=== PATIENT | male | born 1950 | race Caucasian/White ===

== ENCOUNTER 2018-01-05 06:03 | Emergency (ER) | payer MEDICARE ==
[2018-01-05] MEDS ORDERED: SODIUM CHLORIDE 0.9% 500 ML IV STA (06:20)
[2018-01-05] MEDS ORDERED: MAG HYDROX/AL HYDROX/SIMETH 30 ML, HYOSCYAMINE ELIXIR 10 ML, CIMETIDINE HCL 300 MG, LID... PO STA ×4 (06:21)
[2018-01-05] MEDS ORDERED: PANTOPRAZOLE 40 MG/10 ML VIAL IVP STA (06:22)
--- NOTE | 2018-01-05 06:24 | ED ---
General Adult HPI - General Source: patient, RN notes reviewed Mode of arrival: ambulatory Limitations: no limitations <Lobito Ochoa - Last Filed: 01/05/18 07:00> <Lobito Hanley - Last Filed: 01/05/18 09:15> - General Chief complaint: Abdominal Pain Stated complaint: Indigestion Time Seen by Provider: 01/05/18 06:03 - History of Present Illness Initial comments: This is a 67-year-old male who presents emergency Department stating he has a history of heartburn last night as interpreted started about 10:00 he took Aleisha- Arabi and it relieved it for a short period time but then he came back he took Aleisha-Arabi again early in the morning and then again it came back. Patient states every time he laid down flat it would come back worse and sitting up did improve. Patient denies any chest pain difficulty breathing or shortness of breath per patient denies any diaphoresis. Patient denies any nausea or vomiting. Patient denies any diarrhea. Patient denies any radiation of the pain. Patient states it is painful in his upper abdomen and to the right upper quadrant. Patient denies any leg pain or swelling. Patient denies any lightheadedness or dizziness. Patient denies any drinking or smoking (Lobito Ochoa) - Related Data Home Medications Medication Instructions Recorded Confirmed Hydrochlorothiazide 12.5 mg PO QAM 09/02/15 09/06/15 [Hydrochlorothiazide] Lisinopril [Lisinopril] 40 mg PO QAM 09/02/15 09/06/15 Tamsulosin HCl [Tamsulosin HCl] 0.4 mg PO HS 09/02/15 09/06/15 Allergies Allergy/AdvReac Type Severity Reaction Status Date / Time No Known Allergies Allergy Verified 01/05/18 06:12 Review of Systems ROS Other: All systems not noted in ROS Statement are negative. <Lobito Ochoa - Last Filed: 01/05/18 07:00> ROS Other: All systems not noted in ROS Statement are negative. <Lobito Hanley - Last Filed: 01/05/18 09:15> ROS Statement: Those systems with pertinent positive or pertinent negative responses have been documented in the HPI. Past Medical History Past Medical History: Hyperlipidemia, Hypertension History of Any Multi-Drug Resistant Organisms: None Reported Past Surgical History: No Surgical Hx Reported Past Psychological History: No Psychological Hx Reported Smoking Status: Former smoker <Lobito Ochoa - Last Filed: 01/05/18 07:00> General Exam Limitations: no limitations <Lobito Ochoa - Last Filed: 01/05/18 07:00> <HolleyvyLobito Kraus - Last Filed: 01/05/18 09:15> - General Exam Comments Initial Comments: GENERAL: Patient is well-developed and well-nourished. Patient is nontoxic and well- hydrated and is in mild distress. ENT: Neck is soft and supple. No significant lymphadenopathy is noted. Oropharynx is clear. Moist mucous membranes. Neck has full range of motion without eliciting any pain. EYES: The sclera were anicteric and conjunctiva were pink and moist. Extraocular movements were intact and pupils were equal round and reactive to light. Eyelids were unremarkable. PULMONARY: Unlabored respirations. Good breath sounds bilaterally. No audible rales rhonchi or wheezing was noted. CARDIOVASCULAR: There is a regular rate and rhythm without any murmurs gallops or rubs. ABDOMEN: Right upper quadrant and epigastric tenderness No palpable organomegaly was noted. There is no palpable pulsatile mass. SKIN: Skin is clear with no lesions or rashes and otherwise unremarkable. NEUROLOGIC: Patient is alert and oriented x3. Cranial nerves II through XII are grossly intact. Motor and sensory are also intact. Normal speech, volume and content. Symmetrical smile. MUSCULOSKELETAL: Normal extremities with adequate strength and full range of motion. No lower extremity swelling or edema. No calf tenderness. LYMPHATICS: No significant lymphadenopathy is noted PSYCHIATRIC: Normal psychiatric evaluation. Normal interpersonal interactions appears functionally intact in deals appropriately with others. No signs of depression. No signs of anxiety. (Lobito Ochoa) Vital Signs 01/05/18 01/05/18 01/05/18 06:07 06:47 08:00 Temperature 97.5 F L 98 F Pulse Rate 64 100 55 L Respiratory 16 18 16 Rate Blood Pressure 199/112 181/100 170/85 O2 Sat by Pulse 99 100 98 Oximetry Medical Decision Making <Lobito Ochoa - Last Filed: 01/05/18 07:00> - Lab Data Result diagrams: 01/05/18 06:50 01/05/18 06:50 - Radiology Data Radiology results: report reviewed (Ultrasound gallbladder negative, CT and 0 chest abdomen pelvis negative for acute disease), image reviewed <Lobito Hanley - Last Filed: 01/05/18 09:15> - Medical Decision Making EKG shows sinus bradycardia at 55 bpm [place] interval is 170 QRS is 110 QT interval is 440 QTC is 420. Patient's EKG shows no ST segment elevation or depression or T wave abnormalities are noted. Dr. Hanley will be taking over the care of this patient at 7 AM (Ochoa, Lobito) 67 male with ER with nonspecific abdominal pain, mild epigastric tenderness. Patient is no nausea vomiting no fevers no recent travel history no sick contacts no diarrhea, labwork ultrasound and CT are negative. Patient at this point states the pain is mildly tender but improved since arrival. Patient discussed at length symptoms and results, patient states he's 5 for discharge, will follow-up with primary care (Lobito Hanley) - Lab Data Lab Results 01/05/18 01/05/18 01/05/18 Range/Units 06:50 06:50 06:50 WBC 8.7 (3.8-10.6) k/uL RBC 4.35 (4.30-5.90) m/uL Hgb 13.7 (13.0-17.5) gm/dL Hct 40.6 (39.0-53.0) % MCV 93.4 D (80.0-100.0) fL MCH 31.4 (25.0-35.0) pg MCHC 33.7 (31.0-37.0) g/dL RDW 12.5 (11.5-15.5) % Plt Count 158 (150-450) k/uL Neutrophils % 81 % Lymphocytes % 14 % Monocytes % 4 % Eosinophils % 1 % Basophils % 0 % Neutrophils # 7.0 (1.3-7.7) k/uL Lymphocytes # 1.2 (1.0-4.8) k/uL Monocytes # 0.4 (0-1.0) k/uL Eosinophils # 0.0 (0-0.7) k/uL Basophils # 0.0 (0-0.2) k/uL Sodium 135 L (137-145) mmol/L Potassium 3.9 (3.5-5.1) mmol/L Chloride 96 L (98-107) mmol/L Carbon Dioxide 27 (22-30) mmol/L Anion Gap 12 mmol/L BUN 15 (9-20) mg/dL Creatinine 0.70 (0.66-1.25) mg/dL Est GFR (CKD-EPI)AfAm >90 (>60 ml/min/1.73 sqM) Est GFR (CKD-EPI)NonAf >90 (>60 ml/min/1.73 sqM) Glucose 113 H (74-99) mg/dL Calcium 9.1 (8.4-10.2) mg/dL Total Bilirubin 0.8 (0.2-1.3) mg/dL AST 26 (17-59) U/L ALT 20 L (21-72) U/L Alkaline Phosphatase 64 (38-126) U/L Total Creatine Kinase 97 (55-170) U/L CK-MB (CK-2) 1.3 (0.0-2.4) ng/mL CK-MB (CK-2) Rel Index 1.3 Troponin I <0.012 (0.000-0.034) ng/mL Total Protein 7.6 (6.3-8.2) g/dL Albumin 4.5 (3.5-5.0) g/dL Amylase 60 (30-110) U/L Lipase 86 (23-300) U/L Disposition <Lobito Ochoa - Last Filed: 01/05/18 07:00> <Lobito Hanley - Last Filed: 01/05/18 09:15> Clinical Impression: Abdominal pain Disposition: HOME SELF-CARE Condition: Good Instructions: Abdominal Pain (ED) Referrals: Luzmaria Laird DO [Primary Care Provider] - 1-2 days
[2018-01-05 07:05] LABS: Basophils % (A) 0 %; Eosinophils % (A) 1 %; HCT 40.6 % (39.0-53.0); HGB 13.7 gm/dL (13.0-17.5); Lymphocytes # (A) 1.2 k/uL (1.0-4.8); Lymphocytes % (A) 14 %; MCH 31.4 pg (25.0-35.0); MCHC 33.7 g/dL (31.0-37.0); Mean Platelet Volume 8.1; Monocytes # (A) 0.4 k/uL (0-1.0); Monocytes % (A) 4 %; Neutrophils % (A) 81 %; Platelet Count 158 k/uL (150-450); RBC 4.35 m/uL (4.30-5.90); RDW 12.5 % (11.5-15.5); WBC 8.7 k/uL (3.8-10.6)
[2018-01-05 07:14] LABS: MCV 93.4 fL (80.0-100.0)
[2018-01-05 07:18] LABS: ALT 20 U/L (21-72); AST 26 U/L (17-59); Albumin 4.5 g/dL (3.5-5.0); Alkaline Phosphatase 64 U/L (38-126); Amylase 60 U/L (30-110); Anion Gap 12 mmol/L; Blood Urea Nitrogen 15 mg/dL (9-20); Calcium 9.1 mg/dL (8.4-10.2); Carbon Dioxide 27 mmol/L (22-30); Chloride 96 mmol/L (98-107); Glucose 113 mg/dL (74-99); Lipase 86 U/L (23-300); Potassium 3.9 mmol/L (3.5-5.1); Sodium 135 mmol/L (137-145); Total Bilirubin 0.8 mg/dL (0.2-1.3); Total Protein 7.6 g/dL (6.3-8.2)
[2018-01-05] MEDS ORDERED: RX INFO: IV CONTRAST WAS GIVEN 1 EACH MISC MISCELLANE PRN (07:20)
[2018-01-05 07:25] LABS: Creatine Kinase 97 U/L (55-170)
[2018-01-05 07:38] LABS: Creatine Kinase MB 1.3 ng/mL (0.0-2.4); Troponin I <0.012 ng/mL (0.000-0.034)
[2018-01-05 08:01] VITALS: RESP 16
--- NOTE | 2018-01-05 08:19 | CT ---
EXAMINATION TYPE: CT angio chest DATE OF EXAM: 01/05/2018 8:02 AM COMPARISON: NONE HISTORY: c/o epigastric pain, radiating to bilateral upper quad pain CT DLP: 2008.5 (CTA chest and CT abd pelvis) mGycm Automated exposure control for dose reduction was used. CONTRAST: CTA scan of the thorax is performed with IV Contrast, patient injected with 100 mL of Isovue 370, pul monary embolism protocol. . FINDINGS: There is minimal dependent atelectasis at the lung bases. Lungs otherwise clear. There is no significant axillary adenopathy. There is some shotty mediastinal adenopathy. There is no hilar adenopathy. The contrast bolus is suboptimal. There are no large, central pulmonary emboli. The heart is mildly e nlarged. There is no pleural or pericardial fluid. The aortic root is dilated measuring 4.6 cm. The proximal arch is aneurysmal measuring 3.6 cm. The pr oximal descending thoracic aorta is also aneurysmal measuring 3.2 cm. At the level of the aortic hiatus, the aorta is aneurysmal measuring 3.7 cm. There is no evidence of dissection. IMPRESSION: 1. THIS EXAMINATION IS NEGATIVE FOR LARGE PULMONARY EMBOLI. 2. MILD CARDIOMEGALY. 3. THORACIC AORTIC ANEURYSM.
--- NOTE | 2018-01-05 08:26 | CT ---
EXAMINATION TYPE: CT abdomen pelvis w con DATE OF EXAM: 01/05/2018 REFERENCE: NONE HISTORY: Pain HISTORY: c/o epigastric pain, radiating to bilateral upper quad pain REFERENCE: NONE CT DLP: 2008.5 (CTA chest and CT abd pelvis) mGy Automated exposure control for dose reduction was used. TECHNIQUE: Helical acquisition through the abdomen and pelvis was obtained following the oral ingesti on of without Oral Contrast and following intravenous administration of 100 mL of Isovue 370. The yojana a was reformatted in axial, coronal and sagittal projections. FINDINGS: There is dependent atelectasis at the lung bases. There is no pleural or pericardial fluid . The heart is mildly enlarged. Intra-abdominal aorta is normal in caliber. There is a large 12.9 x 10.1 x 11.2 cm cystic lesion in the posterior segment of the right lobe of th e liver. There is also a 1.4 cm, lobulated low attenuating lesion in the anterior aspect of the left lobe of the liver. There is a third, millimeter low attenuating lesion in the anterior aspect of the right lobe of the liver. The left adrenal gland is normal. The right adrenal gland is not well visualized. There is cystic change in both kidneys. The largest is in the mid polar region of the left kidney jensen sures 3.5 cm. The pancreas is unremarkable. There is atheromatous calcification of the aorta and other vascular structures. There is no significa nt retroperitoneal, iliac or inguinal adenopathy. The prostate gland is partially calcified. The bladder is unremarkable. There are scattered diverticula throughout the left side of the colon. There is no radiographic evide nce of diverticulitis. There is mild thickening of the proximal transverse colon. The appendix is normal. Small bowel caliber is normal. There is no free fluid and no free air. There is mild degenerative disc disease, facet arthropathy and hypertrophic spondylosis within the sp ine. IMPRESSION: 1. HEPATIC AND RENAL CYSTIC DISEASE. 2. NONVISUALIZATION OF THE RIGHT ADRENAL GLAND LIKELY DUE TO THE LARGE CYST IN THE POSTERIOR SEGMENT OF THE RIGHT LOBE OF THE LIVER. 3. MILD THICKENING OF THE PROXIMAL TRANSVERSE COLON. PLEASE CORRELATE TO EXCLUDE COLITIS. 4. MILD DEGENERATIVE CHANGE WITHIN THE SPINE.
--- NOTE | 2018-01-05 09:08 | US ---
EXAMINATION TYPE: US gallbladder DATE OF EXAM: 01/05/2018 COMPARISON: CLINICAL HISTORY: Pain. RUQ pain, NPO. EXAM MEASUREMENTS: Liver Length: 23.1 cm Gallbladder Wall: 0.3 cm CHD: 0.4 cm Right Kidney: 12.3 x 6.2 x 5.6 cm Pancreas: Head obscured by overlying bowel gs. Heterogenous. Echogenic. Appears larger in size with body = 2.1 cm. Main pancreatic duct = 1.7 mm. Liver: Enlarged. Posterior right cystic appearing lesion = 10.1 x 12.4 x 10.4 cm Gallbladder: Enlarged= 12.9 cm. Mobile stone = 2.0 cm. Gallbladder wall appears upper limits of nor mal. Evidence for sonographic Adames's sign: neg CBD: Obscured by overlying bowel gas CHD: wnl Right Kidney: Medial upper cystic appearing lesion = 1.4 x 1.8 x 1.4 cm The pancreas appears prominent. The head is obscured. The pancreatic duct is normal in size. The liver is enlarged measuring 23 cm. There is a 10.4 cm cystic lesion in the posterior aspect of th e right lobe of the liver. This was noted on the recent CT scan. There is a 2 cm stone within the gallbladder. The gallbladder wall measures 3 mm. The distal common h epatic duct measures 4 mm. There is no sonographic Adames's sign. There is a 1.8 cm, simple appearing cyst in the upper pole of the right kidney. IMPRESSION: 1. CHOLELITHIASIS. 2. RENAL AND HEPATIC CYSTIC DISEASE. 3. HEPATOMEGALY.
[2018-01-05 09:31] VITALS: BP 164/70; PULSE 64; TEMP 97.9
== END 2018-01-05 09:29 | disposition home or self-care (01) ==
LOC: EC 06:03
DX: R10.11 Right upper quadrant pain (principal); R10.13 Epigastric pain; I10 Essential (primary) hypertension; Z87.891 Personal history of nicotine dependence; Z79.899 Other long term (current) drug therapy
CPT/HCPCS: 36415; 93005; 80053; 82150; 82550; 82553; 83690; 84484; 85025; 76705; 71275; 74177; 99284; 96374; 96361; C9113; Q9967

== ENCOUNTER 2018-11-06 10:33 | Day surgery (SDC) | payer MEDICARE ==
[2018-11-01 15:15] VITALS: BMI 22.1
[~2018-11-06 10:33] MED LIST: ALPRAZolam 0.25 MG TAB PO PRN; ALPRAZolam 0.5 MG TAB PO PRN; ASPIRIN 325 MG TAB PO STA; ATORVASTATIN 80 MG TAB PO STA; NITROGLYCERIN SL TABS 0.4 MG TAB SUBLINGUAL PRN; SODIUM CHLORIDE 0.9% 1,000 ML in EMPTY BAG 1 BAG IV ONE
[2018-11-06] MEDS ORDERED: LIDOCAINE 1% INJ 10MG/ML (20 ML MDV) ONE (12:04)
[2018-11-06] MEDS ORDERED: VERAPAMIL 2.5 MG/ML 2 ML AMP ONE (12:05)
[2018-11-06] MEDS ORDERED: fentaNYL (PF) 50 MCG/ML 2 ML AMP ONE (12:05)
[2018-11-06] MEDS ORDERED: fentaNYL (PF) 50 MCG/ML 2 ML AMP IV ONE (12:28)
[2018-11-06] MEDS: LIDOCAINE 1% INJ 10MG/ML (20 ML MDV) SQ ONE ×2 (12:35→13:03)
[2018-11-06] MEDS ORDERED: VERAPAMIL SYRINGE (5 MG/10 ML) INTRAARTER ONE (12:38)
[2018-11-06] MEDS ORDERED: MIDAZOLAM 2 MG/2 ML VIAL IV ONE (12:45)
[2018-11-06] MEDS ORDERED: HEPARIN SODIUM 1,000 UN/ML (10ML VL) IV ONE (12:47)
[2018-11-06] MEDS ORDERED: IOPAMIDOL-370 100ML BTL INJ ONE (13:12)
[2018-11-06] MEDS ORDERED: IOPAMIDOL-300 50ML BTL INJ ONE (13:12)
[2018-11-06] MEDS ORDERED: RX INFO: IV CONTRAST WAS GIVEN 1 EACH MISC MISCELLANE PRN (13:30)
[2018-11-06] MEDS ORDERED: SODIUM CHLORIDE 0.9% 1,000 ML IV SCH (13:30)
[2018-11-06] MEDS ORDERED: ACETAMINOPHEN TAB 325 MG TAB PO PRN (16:53)
--- NOTE | 2018-11-06 17:34 | CC ---
CARDIAC CATHETERIZATION REPORT Mr. Panchal is a 68-year-old male with known history of peripheral vascular disease, hypertension, chronic tobacco use, who has been complaining of progressive dyspnea as well as was found to have episode of atrial tachycardia and had an abnormal myocardial perfusion imaging. In view of that, recommendation was made regarding cardiac catheterization. The procedures as well as risks and complications were discussed with the patient who is in full understanding and agreement. PROCEDURE: Patient was brought to the [facility] in a fasting state after receiving fentanyl and Benadryl and achieving moderate conscious sedated state. Using Xylocaine anesthesia and Seldinger technique, a 6-Omani sheath was introduced in the right radial artery. Selective right coronary angiography was performed using 5-Omani 3 and half bend right Viridiana catheter. Multiple views of the coronaries were obtained. Attempt to cannulate the left main using a 5-Omani 4 bend left Viridiana were unsuccessful. Subsequently attempt to advance a 5-Omani 5 bend as well as a Antonietta catheter were unsuccessful because of severe tortuosity in the subclavian area. At that time, the catheter and the wire were removed and using Xylocaine anesthesia and the Seldinger technique a 6-Omani sheath was introduced in the right femoral artery and the left coronary angiography was performed using 6-Omani 4 and half bend left Viridiana catheter. Multiple views of the coronary artery including hemiaxial views were obtained. Following that, a 6-Omani tight pigtail catheter was introduced in the left ventricle and a 30 degree CROUCH view of the left ventricle was obtained. Following that, the catheter and sheath were removed. Hemostasis was obtained with deployment of an Angio-Seal and compression and placement of a TR band on the right radial. The patient received 5000 units of intravenous heparin as well as intra-arterial verapamil. There was no immediate complication. FINDINGS: FLUOROSCOPY: There was severe calcification involving the left anterior descending artery proximally. SELECTIVE CORONARY ANGIOGRAPHY: LEFT MAIN: This is almost a nonexistent vessel bifurcating immediately to left circumflex and left anterior descending artery. The left main coronary artery has no evidence of obstructive disease. LEFT ANTERIOR DESCENDING ARTERY: This is a large-sized vessel reaching towards the apex with a wraparound the apex segment giving rise to 2 diagonal branches. The left anterior descending artery is heavily calcified proximally, has 20% to 30% plaque in the mid segment, has a 30% to 40% plaque. The rest of the vessel has no high-grade stenosis. LEFT CIRCUMFLEX: This is a nondominant vessel giving rise to a large obtuse marginal branch. The left circumflex as well as branches have mild intimal disease to 20% without any evidence of high-grade stenosis. RIGHT CORONARY ARTERY: This is a large dominant vessel, very tortuous proximally has a 20% to 30% plaque in the proximal and mid segment without any evidence of high-grade stenosis. LEFT VENTRICULOGRAM: Left ventriculogram was performed in 30 degree CROUCH view and revealed normal left ventricular size and systolic function. Ejection fraction is 55%. There was no significant mitral regurgitation. Significant tortuosity of the aorta was noted. HEMODYNAMICS: There was no gradient across the aortic valve. The left ventricle end-diastolic pressure was 14 to 18 mmHg. CONCLUSION: 1. Heavily calcified proximal left anterior descending coronary artery. 2. Mild to moderate disease in the proximal mid left anterior descending coronary artery .. 3. Mild disease in the right coronary artery and the left circumflex. 4. Normal left ventricular size and systolic function. RECOMMENDATION: In view of findings and anatomy, I have recommended continue medical therapy with aggressive coronary risk factor modifications that have been initiated. Those findings and recommendations were discussed with the patient and his family who are in full understanding and agreement. Duration of procedure is 44 minutes. MMODL / IJN: [id number] /
[2018-11-06] MEDS: METOPROLOL TARTRATE 50 MG TAB PO SCH (19:02)
[2018-11-06] MEDS ORDERED: METOPROLOL TARTRATE 50 MG TAB PO STA (21:51)
[2018-11-07] MEDS ORDERED: METOPROLOL TARTRATE 50 MG TAB PO STA (07:47)
[2018-11-07] MEDS ORDERED: ASPIRIN 325 MG TAB PO SCH (09:00)
[2018-11-07] MEDS ORDERED: LOSARTAN-HCTZ 50-12.5 MG 1 EACH TAB PO SCH (09:00)
[2018-11-07] MEDS ORDERED: ATORVASTATIN 40 MG TAB PO SCH (09:00)
[2018-11-07] MEDS ORDERED: AMIODARONE 200 MG TAB PO SCH (09:00)
[2018-11-07 09:13] VITALS: RESP 18
[2018-11-07] MEDS: METOPROLOL TARTRATE 50 MG TAB PO SCH (09:22)
--- NOTE | 2018-11-07 10:04 | P.PN ---
Subjective Pt is seen and examined sitting up in bed in no acute distress. He underwent cardiac catheterization yesterday via right radial artery which revealed heavily calcified LAD, mild to moderate disease in the proximal to mid LAD, mild disease of the RCA and circumflex with a normal LV size and systolic function. Last evening just prior to discharge telemetry tracings revealed he went into a supraventricular 2:1 tachycardia. He felt mildly short of breath with no chest pain, palpitations or dizziness noted. EKG obtained confirmed he was in SVT at a rate of 146. An additional dose of lopressor was ordered last night, however his heart rate remained elevated through the night. Dr. Myers is at the bedside and carotid massage was attempted but unsuccessful. Adenosine was then administered at 6 mg initially with no effect. Second dose of 12 mg given converted him to heart rate of 77. Blood pressure 131/79 after conversion. The patient felt a mild discomfort in his chest at the time of conversion that subsided immediately thereafter. Repeat EKG confirms conversion. Amiodarone was initiated at 400 mg BID. He does have a history of this in the past and was started on beta blockers. GENERAL: Well-appearing, well-nourished and in no acute distress. NECK: Supple without JVD or thyromegaly. LUNGS: Breath sounds clear to auscultation bilaterally. Respiration equal and unlabored. No wheezes, rales or rhonchi. HEART: Regular rate and rhythm without murmurs, rubs or gallops. S1 and S2 heard. EXTREMITIES: Normal range of motion, no edema. No clubbing or cyanosis. Peripheral pulses intact. ASSESSMENT Supraventricular tachycardia, successfully converted with amiodarone Mild non-obstructive coronary artery disease s/p catheterization History of ascending aortic aneurysm Hypertension Dyslipidemia PLAN He was successfully converted out of SVT with adenosine. Amiodarone has been initiated at 400 mg BID. Continue to monitor for the afternoon, if he continues to maintain normal sinus mechanism he can be discharged this afternoon around 1600. Prescription has been sent to the pharmacy for amiodarone and appointment has been made with Dr. Myers for next week. Continue lopressor at 50 mg BID. Nurse Practitioner note has been reviewed, I agree with a documented findings and plan of care. Patient was seen and examined. Objective - Vital Signs Vital signs: Vital Signs Temp 98.8 F 11/07/18 04:00 Pulse 147 H 11/07/18 08:00 Resp 16 11/07/18 04:00 BP 120/76 11/07/18 04:00 Pulse Ox 94 L 11/07/18 04:00 Intake & Output 11/06/18 11/07/18 11/07/18 18:59 06:59 18:59 Intake Total 500 Output Total 400 400 Balance 100 -400 Weight 115.212 kg Intake: IV 200 Sodium Chloride 0.9% 1, 0 000 ml @ 100 mls/hr IV . Q10H [facility] Rx#:[id number] Intake, IV Titration 200 Amount Sodium Chloride 0.9% 1, 200 000 ml In Empty Bag 1 bag @ 1 ML/KG/HR 68.03 mls/ hr IV .[id number] ONE Rx#: [id number] Oral 100 Output: Urine 400 400 Other: Voiding Method Urinal Urinal # Voids 1 2
[2018-11-07 12:54] VITALS: BP 120/85; PULSE 64; TEMP 97.4
== END 2018-11-07 15:45 | disposition home or self-care (01) ==
LOC: CATHCVL 10:33 → 1SOBS 13:30 → CATHCVL 11-07 15:45
PROVIDERS: ATTEND Internal Medicine Interventional Cardiology
DX: I25.10 Atherosclerotic heart disease of native coronary artery without angina pectoris (principal); R94.39 Abnormal result of other cardiovascular function study; I47.1 Supraventricular tachycardia; E78.5 Hyperlipidemia, unspecified; F17.210 Nicotine dependence, cigarettes, uncomplicated; E78.00 Pure hypercholesterolemia, unspecified; I12.9 Hypertensive chronic kidney disease with stage 1 through stage 4 chronic kidney disease, or unspecified chronic kidney disease; N18.9 Chronic kidney disease, unspecified; I71.2 Thoracic aortic aneurysm, without rupture; I73.9 Peripheral vascular disease, unspecified; Z82.49 Family history of ischemic heart disease and other diseases of the circulatory system; Z79.82 Long term (current) use of aspirin; Z79.899 Other long term (current) drug therapy
CPT/HCPCS: 93005; 93458; C1760; C1894 ×2; C1769 ×2; J2250; J2001; J3010; J1644; Q9967 ×2

== ENCOUNTER → 2019-01-24 | Outpatient (CLI) | payer MEDICARE ==
--- NOTE | 2019-01-24 15:31 | CT ---
EXAMINATION TYPE: CT angio chest DATE OF EXAM: 01/24/2019 COMPARISON: CTA chest January 05, 2018 HISTORY: Follow up for aneurysm of ascending thoracic aorta. CT DLP: 975.8 mGycm. Automated Exposure Control for Dose Reduction was Utilized. CONTRAST: CTA scan of the thorax is performed with IV Contrast, patient injected with 100ml mL of Isovue 370, p ulmonary embolism protocol. MIP Images are created on CT scanner and reviewed. FINDINGS: LUNGS: The lungs are grossly clear, there is no concerning parenchymal mass or nodule identified. T here is no pleural effusion or pneumothorax seen. The tracheobronchial tree is patent. MEDIASTINUM: There is satisfactory enhancement of the pulmonary artery and its branches, there is no CT evidence for pulmonary embolism. There are no greater than 1 cm hilar or mediastinal lymph nodes. No cardiomegaly or pericardial effusion is seen. Ascending aorta measures up to 4.2 cm in diameter at level of pulmonary bifurcation axial image 29 hasn't significantly changed from prior study accou nting for technical differences. There is moderate to severe three-vessel coronary artery calcificati on. OTHER: There is a large thin-walled cyst posterior right hepatic lobe completely imaged on this study measuring 15.9 cm long axis coronal image 27. Visualized left kidney shows 4 mm calculus lower pole level axial image 76 and scattered small simple appearing cysts. Slight scoliotic curvature in the up per to midthoracic spine is present. There is moderate multilevel spurring the spine. Lateral gynecom astia is noted. IMPRESSION: Stable thoracic aortic aneurysm up to 4.2 cm.
== END ==
LOC: RADCTMAIN 14:03
PROVIDERS: ATTEND Thoracic Surgery (Cardiothoracic Vascular Surgery)
DX: I71.2 Thoracic aortic aneurysm, without rupture (principal)
CPT/HCPCS: 82565; 84520; 71275; 36415; Q9967

== ENCOUNTER 2019-06-09 08:37 | Day surgery (SDC) | payer MEDICARE ==
[2019-06-09] MEDS ORDERED: LACTATED RINGERS 1,000 ML IV SCH (08:55)
[2019-06-09] MEDS ORDERED: LIDOCAINE 1% 20 ML VIAL (10MG/ML) FOR IV START INTRADERMA PRN (08:55)
[2019-06-09 09:06] VITALS: RESP 16; TEMP 97.2
[2019-06-09] MEDS ORDERED: METOPROLOL TARTRATE 50 MG TAB PO STA (09:09)
[2019-06-09] MEDS ORDERED: ESMOLOL 100 MG/10 ML VIAL ONE (09:30)
[2019-06-09] MEDS ORDERED: PROPOFOL 10 MG/ML 20 ML VIAL IV ONE (09:30)
--- NOTE | 2019-06-09 10:28 | P.PCN ---
Date of Procedure: 06/09/19 Description of Procedure: BRIEF HISTORY: 69-year-old pleasant female patient presenting for surveillance colonoscopy for a history polyps. Last colonoscopy in 09/06/2015 and at that time patient had multiple small distal sigmoid polyp snared as well as sigmoid diverticulosis, with pathology from colon polypectomies consistent with fragments of adenoma and serrated polyp. He does report colon cancer in his grandfather and his grandfathers brothers. PROCEDURE PERFORMED: Colonoscopy with polypectomy. PREOPERATIVE DIAGNOSIS: History of polyps. ESTIMATED BLOOD LOSS: Minimal. IV sedation per Anesthesia. PROCEDURE: After informed consent was obtained, the patient, was brought into the endoscopy unit. IV sedation was administered by Anesthesia under continuous monitoring. Digital rectal examination was normal. Initially the Olympus CF-190 flexible video colonoscope was then inserted in the rectum, gradually advanced into the cecum without any difficulty. Careful examination was performed as the scope was gradually being withdrawn. Ileocecal valve and the appendiceal orifice were visualized and appeared normal. Prep was good. Mucosa of the cecum, ascending colon, transverse colon, descending colon, sigmoid colon, and rectum appeared normal except for multiple diverticula in the sigmoid colon. Small 3 mm sessile ascending colon polyp removed with cold snare polypectomy. Small 4 mm cecal polyp removed with cold forcep polypectomy due to location and difficulty snaring, removed completely. Retroflexion was performed in the rectum and no lesions were seen. The patient tolerated the procedure well. IMPRESSION: Small cecal polyp removed with cold forcep. Small ascending colon polyp removed with cold snare. Mild sigmoid diverticulosis. RECOMMENDATIONS: Findings of this examination were discussed with the patient. Okay to resume high-fiber diet. Okay to resume medications. Anticipate repeat colonoscopy in 5 years pending pathology from polypectomy.
[2019-06-09 10:43] VITALS: PULSE 80
[2019-06-09 11:11] VITALS: BP 138/90
== END 2019-06-09 11:50 | disposition home or self-care (01) ==
LOC: ORWHC2ENDO 08:37
PROVIDERS: ATTEND Internal Medicine
DX: Z12.11 Encounter for screening for malignant neoplasm of colon (principal); Z86.010 Personal history of colon polyps; K57.30 Diverticulosis of large intestine without perforation or abscess without bleeding; Z80.0 Family history of malignant neoplasm of digestive organs; D12.2 Benign neoplasm of ascending colon; D12.0 Benign neoplasm of cecum; Z91.048 Other nonmedicinal substance allergy status; I10 Essential (primary) hypertension; E78.5 Hyperlipidemia, unspecified; Z87.891 Personal history of nicotine dependence; Z79.899 Other long term (current) drug therapy
CPT/HCPCS: 93005; 88305; 45380; 45385; J2704

== ENCOUNTER 2019-08-05 12:25 | Day surgery (SDC) | payer MEDICARE ==
[2019-08-01 14:03] VITALS: BMI 34.7
[2019-08-05] MEDS ORDERED: IOPAMIDOL-370 100ML BTL INJ ONE ×2 (13:04→15:04)
[2019-08-05] MEDS ORDERED: ISOPROTERENOL 250 MCG/1.25 ML SYR IV ONE (14:45)
[2019-08-05] MEDS ORDERED: HYDROmorphone (PF) 1 MG/ML ONE (14:45)
[2019-08-05] MEDS ORDERED: fentaNYL (PF) 50 MCG/ML 2 ML AMP ONE (14:45)
[2019-08-05] MEDS ORDERED: PROPOFOL 10 MG/ML 20 ML VIAL IV ONE (14:45)
[2019-08-05] MEDS ORDERED: MIDAZOLAM 2 MG/2 ML VIAL ONE (14:45)
[2019-08-05] MEDS ORDERED: IV FLUID CONTINUATION 1,000 ML IV ONE (14:49)
[2019-08-05] MEDS ORDERED: SODIUM CHLORIDE 0.9% 1,000 ML IV ONE (14:50)
--- NOTE | 2019-08-05 15:11 | P.HPCAR ---
History of Present Illness This is Randa Kenney PA-C dictating an H&P on this patient The patient was interviewed and examined by me as well as by Dr. Ruff Case discussed with Dr. Ruff and he agrees with the plan of care IMPRESSION / ASSESSMENT: Recurrent symptomatic SVT Nonobstructive CAD Hypertension Peripheral vascular disease Tobacco use Obstructive sleep apnea PLAN: Proceed with diagnostic EP study and SVT ablation HPI Patient is a 69-year-old male with a past medical history of CAD, hypertension, peripheral vascular disease, SVT, and tobacco use who presents for evaluation and management of SVT. Patient has had recurrent episodes of palpitations with associated shortness of breath. Most recently, they occurred while he was at the office. His EKG showed a supraventricular tachycardia with QRS alternans, ventricular rate 150-160 bpm. Terminated with IV adenosine. Patient seen and examined resting in bed. Denies any chest pain, shortness of breath, dizziness, or palpitations currently. No recent infections. ROS: No fevers, chills or rigors, no cough, phlegm or expectoration, no nausea, vomiting or diarrhea, no hematuria, dysuria, no musculoskeletal complaints, no strokes or seizures, no skin lesions. EXAMINATION: Temperature 98.3F, pulse 79, respirations 16, blood pressure 185/102, oxygen saturation 97% on room air Patient seen and examined resting comfortably in bed, in no acute distress Lungs clear to auscultation bilaterally, no wheezing rhonchi or crackles noted Heart is regular, normal S1-S2, no murmurs noted No elevated JVD No lower extremity edema Abdomen soft nontender to palpation REVIEW OF LABS, ECG & MEDICAL DATA Most recent labs reviewed, WBC 5.6, hemoglobin 14.8, platelets 201, sodium 144, potassium 5.2, BUN 14, creatinine 1.1 Physical Exam Vitals: Vital Signs Temp Pulse Resp BP Pulse Ox 08/05/19 13:45 98.3 F 79 16 185/102 97 Past Medical History Past Medical History: Hyperlipidemia, Hypertension, Supraventricular Tachycardia (SVT) Additional Past Medical History / Comment(s): See Dr Ruff's H&P History of Any Multi-Drug Resistant Organisms: None Reported Past Surgical History: Heart Catheterization Additional Past Surgical History / Comment(s): COLONOSCOPY , WISDOM TOOTH EXTRACTION, Heart catheterization 2/13/19 Past Anesthesia/Blood Transfusion Reactions: No Reported Reaction Smoking Status: Former smoker - Past Family History Son(s) Family Medical History: Cancer Mother Family Medical History: Cancer Father Family Medical History: Cancer Physical Examination Vital Signs Temp Pulse Resp BP Pulse Ox 08/05/19 13:45 98.3 F 79 16 185/102 97 Results Current Medications Generic Name Dose Route Start Last Admin Trade Name Freq PRN Reason Stop Dose Admin Sodium Chloride 1,000 mls @ 20 mls/hr 08/05/19 07:17 Saline 0.9% IV .Q24H EMELY Lactated Ringer's 1,000 mls @ 20 mls/hr 08/05/19 07:17 Lactated Ringers IV .Q24H EMELY
[2019-08-05] MEDS ORDERED: LIDOCAINE 1% INJ 10MG/ML (20 ML MDV) SQ ONE (15:24)
[2019-08-05] MEDS ORDERED: LIDOCAINE 1% INJ 10MG/ML (20 ML MDV) ONE ×2 (15:30→15:49)
[2019-08-05] MEDS ORDERED: HEPARIN SODIUM (1,000 UNIT/ML) 1,000 UNIT in SODIUM CHLORIDE 0.9% 1,000 ML IRRIGATION ONE (16:33)
[2019-08-05] MEDS ORDERED: HEPARIN SODIUM 1,000 UN/ML (10ML VL) ONE (16:38)
[2019-08-05] MEDS ORDERED: ACETAMINOPHEN TAB 325 MG TAB PO PRN (18:15)
[2019-08-05] MEDS ORDERED: ACETAMINOPHEN IV (For NPO) 1,000 MG in EMPTY BAG 1 BAG IVPB ONE (18:15)
[2019-08-05] MEDS ORDERED: HYDROcodone/APAP 5-325MG 1 EACH TAB PO PRN (18:15)
[2019-08-05 20:12] VITALS: RESP 18
--- NOTE | 2019-08-05 21:02 | PCN ---
PROCEDURE NOTE Farhad Panchal is a 69-year-old male patient with recurrent SVT, symptomatic, and adenosine-sensitive. He was brought in for a diagnostic EP study and radiofrequency ablation. Patient was brought to the EP lab in a fasting state. Written informed consent was obtained prior to the procedure. A venous sheath was placed in the left axillary/subclavian vein, and via this a decapolar catheter was positioned in the coronary sinus for coronary sinus pacing and recording. Next, venous sheaths were placed in the right and left femoral veins, and via these high right atrial catheter, His bundle catheter and RV catheters were placed. Full diagnostic EP study was performed. Sinus cycle length 736 milliseconds, TN interval 151 milliseconds, QRS 99 milliseconds, QT 367 milliseconds. AH interval 54 milliseconds, HV interval 37 milliseconds. 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 Septal VA times were less than 60 milliseconds. Pacing from the ventricle resulted in entrainment of the tachycardia. Post-pacing interval was long at 570 milliseconds. In the sinus rhythm, AV node Wenckebach was 390 milliseconds, but the tachycardia would induce very easily with onset with a slow pathway conduction. The coronary sinus activation was concentric, consistent with the atrial end of the slow pathway in front of the coronary sinus. Late coupled PACs from this area were delivered during tachycardia, and this advanced the tachycardia. A long sheath was placed. Irrigated-tip ablation catheter was placed and power from 25 to 30 cool was used. Two RF lesions at this site resulted in junctional rhythm to sinus rhythm and complete elimination of SVT. Following that, a detailed EP study was performed both on and off Isuprel. High-dose Isuprel was used. EP study was performed during Isuprel washout. Other than an occasional single echo beat, no other arrhythmias were induced. Parahisian pacing was performed and a christian response was noted. At the end, on Isuprel, AV node Wenckebach block 270 milliseconds, VA Wenckebach block 200 milliseconds. Atrial extrastimulation after double extrastimuli from the coronary sinus. Straight pacing from the high right atrium. Ventricular extrastimulation was performed. No arrhythmia was induced. The patient tolerated the procedure well without any acute complications. All catheters were removed and he was transferred back to telemetry. RESULT: Diagnostic EP study revealing AV christian re-entry as the mechanism of tachycardia with the antegrade limb being the slow pathway with the atrial and anterior in front of the coronary sinus which was proven with resetting of the tachycardia from this site. The retrograde limb was a retrograde fast pathway. Successful mapping and ablation was performed and the tachycardia was rendered noninducible. GUSTABO / VANESSA: [id number] /
--- NOTE | 2019-08-05 21:05 | PCN ---
PROCEDURE NOTE August 05, 2019 To: Dr. Luzmaria Laird Re: Farhad Panchal (54) Dear Dr. Good, Mr. 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 The tachycardia was rendered noninducible. His blood pressure was quite elevated today and therefore he may need further maximization of his antihypertensive therapy in the future. Thank you for entrusting me with the care of your patient. Warm regards. Sincerely, Daniel Ruff MD [email or web address] / IJN: [id number] /
[2019-08-05] MEDS: LACTATED RINGERS 1,000 ML IV SCH (21:59)
[2019-08-05] MEDS: SODIUM CHLORIDE 0.9% 1,000 ML IV SCH (21:59)
[2019-08-05] MEDS: LOSARTAN-HCTZ 50-12.5 MG 1 EACH TAB PO SCH (22:00)
[2019-08-06] MEDS: LOSARTAN-HCTZ 50-12.5 MG 1 EACH TAB PO SCH (08:03)
[2019-08-06] MEDS: SODIUM CHLORIDE 0.9% 1,000 ML IV SCH (08:13)
[2019-08-06] MEDS: LACTATED RINGERS 1,000 ML IV SCH (08:19)
[2019-08-06] MEDS ORDERED: ASPIRIN 325 MG TAB PO SCH (09:00)
[2019-08-06] MEDS ORDERED: LOSARTAN-HCTZ 50-12.5 MG 1 EACH TAB PO SCH (09:00)
[2019-08-06 11:32] VITALS: BP 146/89; PULSE 77; TEMP 98
--- NOTE | 2019-08-06 13:13 | P.DS ---
Providers Attending physician: Daniel Rfuf Primary care physician: Luzmaria [facility] Course: This is a pleasant 69-year-old male past medical history significant for coronary artery disease, hypertension, peripheral vascular disease, SVT, obstructive sleep apnea and nicotine dependence. He came in to the hospital for an elective EP study and SVT ablation. Diagnostic EP study revealed AV node reentry tachycardia. He underwent successful mapping and ablation. He is seen and examined resting comfortably in bed in no acute distress. He denies symptoms of chest discomfort, shortness of breath, dizziness or palpitations. Blood pressure 146/89 heart rate 77 afebrile maintaining oxygen saturation on room air. GENERAL: Well-appearing, well-nourished and in no acute distress. NECK: Supple without JVD or thyromegaly. LUNGS: Breath sounds clear to auscultation bilaterally. Respiration equal and unlabored. No wheezes, rales or rhonchi. HEART: Regular rate and rhythm without murmurs, rubs or gallops. S1 and S2 heard. EXTREMITIES: Normal range of motion, no edema. No clubbing or cyanosis. Peripheral pulses intact. Bilateral femoral access sites are soft, non-tender, no hematoma, no bleeding, no ecchymosis. ASSESSMENT Recurrent symptomatic SVT status post EP study and successful ablation Nonobstructive CAD Hypertension Peripheral vascular disease Obstructive sleep apnea Chronic nicotine dependence PLAN Increase losartan/HCTZ 50 mg/12.5 mg to BID from daily dosing for more optimal blood pressure control. Recommend outpatient sleep study. Follow-up in the office with Dr. Myers in one week. Stable for discharge. Nurse Practitioner note has been reviewed, I agree with a documented findings and plan of care. Patient was seen and examined. Plan - Discharge Summary Discharge Rx Participant: No New Discharge Prescriptions: New Losartan-Hctz 50-12.5 mg [Hyzaar 50-12.5] 1 each PO BID #180 tab Continue Aspirin 325 mg PO DAILY Discontinued Metoprolol Tartrate [Lopressor] 50 mg PO BID Losartan-Hctz 50-12.5 mg [Hyzaar 50-12.5] 1 each PO DAILY Discharge Medication List Aspirin 325 mg PO DAILY 11/01/18 [History] Losartan-Hctz 50-12.5 mg [Hyzaar 50-12.5] 1 each PO BID #180 tab 11/13/19 [Rx] Follow up Appointment(s)/Referral(s): Moses Myers MD [STAFF PHYSICIAN] - 08/14/19 10:00 am () Patient Instructions/Handouts: Cardiac Ablation (DC) Activity/Diet/Wound Care/Special Instructions: Post EP study - Ablation instructions 1. Keep access sites dry for 2 days. 2. No heavy lifting or straining for 2 days. 3. Avoid bending the hips repeatedly for 2 days. 4. You may go up and down stairs slowly Call if the following is noted 1. Bleeding, increasing swelling or pain at the access sites. 2. Increasing chest discomfort, especially upon taking a deep breath. 3. Increasing shortness of breath, at rest or with exertion. 4. Undue cough / phlegm 5. Difficulty or pain while swallowing. 6. Pain or change in color in the extremities. 7. Fever, chills, rigors. 8. Increasing headache or neurologic symptoms. 9. Dizziness, fainting, palpitations Stop metoprolol, take Hyzaar twice daily Discharge Disposition: HOME SELF-CARE
== END 2019-08-06 13:15 | disposition home or self-care (01) ==
LOC: CATHEP 12:25 → 1SOBS 18:49 → CATHEP 08-06 13:15
PROVIDERS: ATTEND Internal Medicine Clinical Cardiac Electrophysiology
DX: I47.1 Supraventricular tachycardia (principal); I25.10 Atherosclerotic heart disease of native coronary artery without angina pectoris; I10 Essential (primary) hypertension; E78.5 Hyperlipidemia, unspecified; I73.9 Peripheral vascular disease, unspecified; G47.33 Obstructive sleep apnea (adult) (pediatric); Z99.89 Dependence on other enabling machines and devices; Z87.891 Personal history of nicotine dependence; Z79.82 Long term (current) use of aspirin; Z79.899 Other long term (current) drug therapy
CPT/HCPCS: 93623; 93613; 93653; C1769 ×3; C1894; C1730 ×3; C1893; C1732; J2250; J2001; J3010; J1644; J1170; J2704; Q9967

== ENCOUNTER → 2019-11-04 | Outpatient (CLI) | payer MEDICARE ==
--- NOTE | 2019-11-05 02:26 | CONS ---
CONSULTATION DATE OF SERVICE: 11/04/2019 REASON FOR CONSULTATION: Obstructive sleep apnea. This is a very pleasant 69-year-old gentleman who follows with Dr. Laidr as his primary care provider. He has a history of obstructive sleep apnea, obesity, hypertension, abdominal aortic aneurysm, benign prostatic hypertrophy. He had been seen by Dr. Pandey back in 2016 and at that time he was already on a CPAP machine and the plan was for Dr. Pandey to review the machine and maybe not have a repeat sleep study. The patient had not been seen in followup. He is here now in 2019 with concerns regarding his sleep apnea. He states his machine quit working greater than 1 year ago and has not been on any treatment since then. He states he had been on a CPAP machine since 2011. He does have an Clio score of 20 and has been having significant snoring and waking up multiple times during the evening. He has noticed increased fatigue with less activity. His weight is up from 220 to 282 pounds. In the interim he had also undergone an ablation for SVT and cardiac catheterization with a 40% LAD lesion. He is now retired from driving a truck. PAST MEDICAL HISTORY: Includes obstructive sleep apnea, chronic hypersomnia with an Clio score of 20, obesity, hypertension, benign prostatic hypertrophy, SVT, mild coronary artery disease. PAST SURGICAL HISTORY: Includes ablation for SVT. ALLERGIES: No known drug allergies. HOME MEDICATIONS: Losartan HCT 50/12.5 mg twice a day. SOCIAL HISTORY: The patient has a remote history of smoking. No excessive alcohol use or illicit drug use. FAMILY HISTORY: Positive for colon cancer in his maternal grandfather and 3 uncles. His mom passed from multiple myeloma. His father passed from prostate cancer with previous myocardial infarction. He did have a son who from a brain tumor. REVIEW OF SYSTEMS: 14-point review of system was conducted. All negative other than as mentioned in the HPI, that mainly being related to obstructive sleep apnea. PHYSICAL EXAMINATION: Vital signs revealed blood pressure 149/87, heart rate 91, respirations 16, temperature is 97.7. He is 96% O2 saturation on room air. His height is 5 feet 8 inches, weight is 282.8 pounds. Neck circumference 21 inches, BMI 42.8. Clio Sleepiness Scale score is 20. GENERAL APPEARANCE: Alert, pleasant, 69-year-old gentleman in no acute distress. HEENT: Head is normocephalic. Sclerae anicteric. NECK: Supple. Trachea midline. Lungs are clear anterior and posteriorly. Heart is regular S1, S2. Abdomen is obese, soft, nontender. Bowel sounds are present. EXTREMITIES: There is no significant peripheral edema. No clubbing. No cyanosis. Peripheral pulses are intact. IMPRESSION: 1. Symptomatic obstructive sleep apnea in a patient who has not utilized his machine in greater than 1 year and had previously been on a CPAP device since 2011. 2. Obesity, body mass index 42.8. 3. Hypertension. 4. Benign prostatic hypertrophy. 5. Mild coronary artery disease with 40% lesion in the LAD. 6. History of supraventricular tachycardia status post ablation. PLAN: The patient's case was reviewed and discussed with Dr. Pandey. The patient does require a sleep study to evaluate the severity of his previously diagnosed obstructive sleep apnea. The patient has not been under treatment in greater than 1 year. He is educated regarding the importance of weight loss. He is educated regarding the importance of compliance. He will be seen back after his sleep study. We will try to get the patient a new CPAP machine with subsequent CPAP titration. I, the cosigning physician, performed a history and physical examination on the patient. Lung sounds are clear. Maintained O2 saturations at 96% on room air. I discussed the assessment and plan of care with my nurse practitioner, Elvia Nick. I attest to the above consultation as dictated by her. MMODL / IJN: [id number] /
== END | disposition home or self-care (01) ==
LOC: SLEEP 13:30
PROVIDERS: ATTEND Internal Medicine Critical Care Medicine
DX: G47.33 Obstructive sleep apnea (adult) (pediatric) (principal); E66.9 Obesity, unspecified; I10 Essential (primary) hypertension; N40.0 Benign prostatic hyperplasia without lower urinary tract symptoms; I25.10 Atherosclerotic heart disease of native coronary artery without angina pectoris; Z68.41 Body mass index [BMI] 40.0-44.9, adult; Z86.79 Personal history of other diseases of the circulatory system; Z87.891 Personal history of nicotine dependence; Z98.890 Other specified postprocedural states; Z79.899 Other long term (current) drug therapy
CPT/HCPCS: 99211

== ENCOUNTER → 2020-08-10 | Outpatient (CLI) | payer MEDICARE ==
--- NOTE | 2020-08-10 16:18 | CT ---
EXAMINATION TYPE: CT abdomen pelvis wo con DATE OF EXAM: 08/10/2020 COMPARISON: Prior CT 01/05/2018 HISTORY: Hematuria, left lower quadrant pain CT DLP: 1264.4 mGycm Automated exposure control for dose reduction was used. TECHNIQUE: Helical acquisition of images from the lung bases through the pelvis. FINDINGS: Lack of intravenous contrast could compromise sensitivity of the exam. LUNG BASES: No significant abnormality is appreciated. AORTA: No significant abnormality is appreciated. LIVER/GB: Large cyst is present in the posterior right lobe of liver measuring 13 cm in greatest dime nsion similar to prior. Additional low dense foci within the liver are unchanged. Gallbladder is norm al.. PANCREAS: No significant abnormality is seen. SPLEEN: No significant abnormality is seen. ADRENALS: No significant abnormality is seen. KIDNEYS: Lower pole the left kidney shows a nonobstructive calculus as on previous exam. Cortical cys ts are present bilaterally within the kidneys, at the upper pole of the right kidney there is a dense exophytic lesion measuring 17 mm which likely represents proteinaceous cyst as on prior. Within the right renal pelvis there is a calculus measuring 17 mm, some peripelvic stranding present suggest inf lammatory change. No evident hydronephrosis or ureteral calculus.. REPRODUCTIVE ORGANS: Prostate shows associated calcification. URINARY BLADDER: Concentric thickening of the urinary bladder wall may be due to chronic outlet obst ruction or lack of distention. BOWEL: Diverticular changes associated with the colon. FREE AIR: No Free Air is visible. ASCITES: None visible. PELVIC ADENOPATHY: None visualized. RETROPERITONEAL ADENOPATHY: No Retroperitoneal Adenopathy visible. OSSEOUS STRUCTURES: No significant abnormality is seen. IMPRESSION: BILATERAL NEPHROLITHIASIS. THE RIGHT RENAL PELVIC STONE HAS INCREASED IN SIZE IN THE INTERVAL. LARGES T LIVER CYST.
== END | disposition home or self-care (01) ==
LOC: RADCTMAIN 13:10
PROVIDERS: ATTEND Family Medicine
DX: N20.0 Calculus of kidney (principal); K76.89 Other specified diseases of liver
CPT/HCPCS: 74176

== ENCOUNTER → 2021-11-11 | Outpatient (CLI) | payer MEDICARE ==
--- NOTE | 2021-11-11 12:23 | CT ---
EXAMINATION TYPE: CT urogram wo/w con DATE OF EXAM: 11/11/2021 INDICATION: 71-year-old male, microhematuria. CT DLP: 4402 mGy.cm Automated Exposure Control for Dose Reduction was Utilized. TECHNIQUE AND CONTRAST: Multiplanar multiphase CT scan of the abdomen and pelvis is performed as per CT urogram protocol. The patient injected with 100 mL of Isovue 370. 3-D reconstruction images were performed and reviewed. COMPARISON: CT dated 08/10/2020 FINDINGS: Redemonstration of the previously seen nonobstructing stone within the right renal pelvis measuring 1 5 mm. Evident urothelial thickening of the right renal pelvis which could be related to chronic infec tion secondary to the renal pelvis stone however underlying urothelial lesion cannot be excluded, ple ase correlate with urinalysis results including cytology. Slightly dilated right ureter without defin ite distal obstructing stone. Nonobstructing stone is seen at the lower pole of the left kidney measu ring 7 mm. No other definite radiodense renal, ureteric or urinary bladder calculi. No hydroureter or hydronephrosis. Hyperdense exophytic lesion is seen at the anterior aspect of the r ight kidney measuring 17 mm without definite enhancement, likely representing a hemorrhagic cyst. Sca ttered bilateral renal cysts measuring up to 5.6 cm without suspicious feature. No definite filling d efect is seen within the renal collecting system or the opacified portion of the ureters. Unremarkabl e urinary bladder. Slightly enlarged heterogeneous prostate with prostatic concretion, please correla te with PSA level. Unremarkable seminal vesicles. Large right posterior hepatic exophytic subcapsular cyst measuring 7.2 x 10.4 cm compared to 9.8 x 13 [address] scan without suspicious feature. Other scattered smaller stable hepatic cysts. No ne w hepatic focal lesion identified. Unremarkable gallbladder, spleen, pancreas and adrenals. Scattered arterial atherosclerotic calcifications. Unremarkable stomach, duodenum and small bowel. Scattered colonic diverticulosis. Normal appendix. Bi lateral fat-containing thin inguinal hernias. No suspicious lymphadenopathy or sizable ascites. Unrem arkable lung bases. Stable thickening of the right iliac bone without obstruction. Degenerative evans es of the lower thoracic and lower lumbar spine. No aggressive bone lesion. IMPRESSION: 14 mm nonobstructing stone within the right renal pelvis, appreciated previously. Right renal pelvis urothelial thickening with surrounding fat stranding which could be related to chronic infection seco ndary to the renal pelvis stone however a subtle underlying urothelial lesion cannot be excluded. Rec ommend correlation with urinalysis results including cytology. 7 mm nonobstructing left renal stone. No other definite radiodense urinary calculi. No hydroureter or hydronephrosis. No other definite suspicious renal, ureteric or urinary bladder lesion. Other incide ntal findings as detailed above.
== END | disposition home or self-care (01) ==
LOC: RADCTMAIN 07:27
PROVIDERS: ATTEND Urology
DX: N20.0 Calculus of kidney (principal)
CPT/HCPCS: 82565; 84520; 74178; 36415; 74400; Q9967

== ENCOUNTER → 2022-01-03 | Outpatient (CLI) | payer MEDICARE ==
[2022-01-03 18:43] LABS: Basophils # (A) 0.03 X 10*3/uL (0.00-0.10); Basophils % (A) 0.4 %; Eosinophils # (A) 0.08 X 10*3/uL (0.04-0.35); Eosinophils % (A) 1.2 %; HCT 42.4 % (39.6-50.0); HGB 14.1 g/dL (13.0-17.0); Immature Grans, Automated 0.3 %; Lymphocytes # (A) 2.15 X 10*3/uL (0.90-5.00); Lymphocytes % (A) 32.2 %; MCH 32.5 pg (27.0-32.0); MCHC 33.3 g/dL (32.0-37.0); MCV 97.7 fL (80.0-97.0); Mean Platelet Volume 11.2 fL (9.5-12.2); Monocytes # (A) 0.51 X 10*3/uL (0.20-1.00); Monocytes % (A) 7.6 %; NRBC Per 100 WBC 0 /100 WBCS (0.0-0.0); Neutrophils # (A) 3.88 X 10*3/uL (1.80-7.70); Neutrophils % (A) 58.3 %; Platelet Count 203 X 10*3/uL (140-440); RBC 4.34 X 10*6/uL (4.40-5.60); RDW 12.5 % (11.5-14.5); WBC 6.67 X 10*3/uL (4.50-10.00)
[2022-01-03 20:53] LABS: African American GFR (CKD) 101.5 (60.0-200.0); Anion Gap 13.1 mmol/L (10.00-18.00); BUN/Creat Ratio 18.16 Ratio (12.00-20.00); Calcium 9.4 mg/dL (8.7-10.3); Carbon Dioxide 27.1 mmol/L (20.0-27.5); Non-African American GFR(CKD) 87.6 (60.0-200.0); Potassium 3.9 mmol/L (3.5-5.5)
[2022-01-03 23:14] LABS: Appearance,Urine Cloudy (Clear); Bacteria,Urine None Seen /HPF (None Seen); Bilirubin,Urine Negative (Negative); Blood,Urine Small (Negative); Color,Urine Yellow (Yellow); Ketones,Urine Negative (Negative); Nitrite,Urine Negative (Negative); Specific Gravity,Urine 1.012 (1.001-1.030); Urobilinogen,Urine 0.2 (0.2,1.0)
== END | disposition home or self-care (01) ==
LOC: LABPAT 13:23
PROVIDERS: ATTEND Urology
DX: Z01.812 Encounter for preprocedural laboratory examination (principal); N20.0 Calculus of kidney
CPT/HCPCS: 36415; 80048; 81001; 85025; 87086

== ENCOUNTER 2022-01-09 07:20 | Day surgery (SDC) | payer MEDICARE ==
[2022-01-05 17:24] VITALS: BMI 36.9
--- NOTE | 2022-01-06 14:56 | P.HPIHPCON ---
History of Present Illness H&P Date: 01/06/22 Chief Complaint: Right-sided renal stone This is a 71-year-old male with history of a 1.4 cm right-sided renal pelvis stone. Option of ESWL versus holmium laser lithotripsy was discussed with him in detail. He agreed to proceed with right-sided ureteroscopy with holmium la ser. Discussed the risk which includes but not limited to bleeding, infection, injury to the ureter. Discussed also given the size of the stone potential of needing a second operation. Discussed also the potential of persistent stone fragments. He understood all the risk and agreed to proceed with right-sided ureteroscopy with holmium laser lithotripsy and stent insertion Consent for Procedure: I have explained the operation/procedure to the patient, including the risks, benefits, side effects, alternative therapies (including not receiving the proposed treatment or service), the likelihood of the patient achieving his/her goals, and potential recuperation problems for the procedure/sedation/analgesia, as well as any blood products, if indicated. I also explained to the patient the risks, benefits and side effects of the alternatives, as well as the risks related to not receiving the proposed procedure, care, treatment, or services. Past Medical History Past Medical History: Cancer, Hypertension, Prostate Disorder, Sleep Apnea/CPAP/BIPAP, Supraventricular Tachycardia (SVT) Additional Past Medical History / Comment(s): hx migraines, febrile seizures age 4, uses cpap, hx hiatal hernia, diverticulitis, gallstones, "low grade prostate cancer" History of Any Multi-Drug Resistant Organisms: None Reported Past Surgical History: Cardiac Ablation, Heart Catheterization, Tonsillectomy Additional Past Surgical History / Comment(s): COLONOSCOPY , cyst removed from near eye, ingroin toenail surgery rt foot, Past Anesthesia/Blood Transfusion Reactions: No Reported Reaction Additional Past Anesthesia/Blood Transfusion Reaction / Comment(s): vertigo, Smoking Status: Former smoker - Past Family History Mother Family Medical History: Cancer Father Family Medical History: Cancer Son(s) Family Medical History: Cancer Medications and Allergies Home Medications Medication Instructions Recorded Confirmed Type Losartan-Hctz 50-12.5 mg [Hyzaar 1 each PO BID #180 tab 08/06/19 01/05/22 Rx 50-12.5] Aspirin [Adult Low Dose Aspirin EC] 81 mg PO DAILY 01/05/22 01/05/22 History Allergies Allergy/AdvReac Type Severity Reaction Status Date / Time cat dander Allergy SNEEZING, Verified 01/05/22 17:10 RUNNY NOSE, ITCHY EYES mold Allergy SNEEZING Verified 01/05/22 17:10 ragweed pollen Allergy SNEEZING, Verified 01/05/22 17:10 RUNNY NOSE DUST, POLLEN Allergy SNEEZING , Uncoded 01/05/22 17:10 RUNNY NOSE ITCHY EYE Assessment and Plan Assessment: OR for right-sided ureteroscopy with holmium laser lithotripsy and stent insertion
[~2022-01-09 07:20] MED LIST changes: -ALPRAZolam 0.25 MG TAB PO PRN; -ALPRAZolam 0.5 MG TAB PO PRN; -ASPIRIN 325 MG TAB PO STA; -ATORVASTATIN 80 MG TAB PO STA; +DEXAMETHASONE SOD PHOSPHATE 4 MG/ML 1 ML VIAL IV ONE; +HYDROmorphone 0.5 MG/0.5 ML SYRINGE IVP PRN; +LACTATED RINGERS 1,000 ML IV SCH; -NITROGLYCERIN SL TABS 0.4 MG TAB SUBLINGUAL PRN; +ONDANSETRON 4 MG/2 ML VIAL IVP ONE; -SODIUM CHLORIDE 0.9% 1,000 ML in EMPTY BAG 1 BAG IV ONE
--- NOTE | 2022-01-09 08:28 | XR ---
EXAMINATION TYPE: XR KUB DATE OF EXAM: 01/09/2022 COMPARISON: CT dated 11/11/2021 INDICATION: Right-sided stone, preoperative lithotripsy TECHNIQUE: 2 supine views of the abdomen and pelvis. FINDINGS: 16 mm right renal pelvis stone, stable. The previously seen left lower pole renal calculus is not wel l appreciated by this x-ray. Degenerative changes of the visualized portion of the spine. IMPRESSION: As above.
[2022-01-09] MEDS ORDERED: PROPOFOL 10 MG/ML 20 ML VIAL IV ONE (09:21)
[2022-01-09] MEDS ORDERED: SUCCINYLCHOLINE CHLORIDE 100 MG/5 ML SYR IV ONE (09:21)
[2022-01-09] MEDS ORDERED: fentaNYL (PF) 50 MCG/ML 2 ML AMP ONE (09:21)
[2022-01-09] MEDS ORDERED: MIDAZOLAM 2 MG/2 ML VIAL ONE (09:21)
[2022-01-09] MEDS ORDERED: LIDOCAINE 1% INJ 10MG/ML (20 ML MDV) ONE (09:21)
--- NOTE | 2022-01-09 10:36 | P.OP ---
Date of Procedure: 01/09/22 Preoperative Diagnosis: Right renal stone Postoperative Diagnosis: Same Procedure(s) Performed: Cystoscopy, right ureteroscopy, holmium laser lithotripsy, and stent insertion Implants: 6-Slovak by 26 cm stent in the right ureter Anesthesia: JESSE Surgeon: Edis Roque Estimated Blood Loss (ml): 5 Condition: stable Disposition: PACU Indications for Procedure: This is a 71-year-old male with history of a 1.4 cm right-sided renal pelvis stone. Option of ESWL versus holmium laser lithotripsy was discussed with him in detail. He agreed to proceed with right-sided ureteroscopy with holmium laser. Discussed the risk which includes but not limited to bleeding, infection, injury to the ureter. Discussed also given the size of the stone potential of needing a second operation. Discussed also the potential of persistent stone fragments. He understood all the risk and agreed to proceed with right-sided ureteroscopy with holmium laser lithotripsy and stent insertion Operative Findings: Large right-sided renal pelvis stone Description of Procedure: Patient was brought to the operating room, general anesthesia was induced. He was prepped and draped in sterile fashion a placement dorsal lithotomy position. Cystoscopy fitted with a 21-Slovak sheath was inserted per urethra, cystoscopy was performed showed no abnormality within the bladder. Attention was then carried to the right ureteral orifice which was intubated with a sensor wire. Next the cystoscope was removed and a 1113 Slovak access sheath was advanced over the wire into the proximal ureter. Next flexible ureteroscope was inserted through the access sheath, I attempted to advance the scope into the renal pelvis but resistance was met at the proximal ureter, of note the ureter was narrowed at the proximal ureter. At this time a sensor wire was advanced through the scope and with the assistance of a sensor wire was able to navigate the scope past the narrowing and into the renal pelvis. At this time a large stone was encountered in the renal pelvis. Using the holmium laser the stone was dusted, given the narrowing in the proximal ureter no fragments were removed. Repeat renoscopy showed no sizable fragments or injury to the kidney. Pullback ureteroscopy was performed which showed mild mucosal tearing at the proximal ureter, but no fat was seen. Otherwise the remainder of the ureter was within normal limits, and there was no evidence of any fragments along the course of the ureter. As a ureteroscope was withdrawn and a sensor wire was advanced through. Next a ureteral stent was passed over the wire, the proximal curl was visualized on fluoroscopy and distal curl was visualized using the cystoscope. The patient tolerated procedure well was taken to recovery in stable condition. He will follow-up in 3-4 weeks for stent removal
[2022-01-09 10:49] VITALS: RESP 16; TEMP 98.3
[2022-01-09 11:27] VITALS: BP 161/85; PULSE 86
--- NOTE | 2022-01-09 14:44 | FL ---
EXAMINATION TYPE: FL guidance operating room DATE OF EXAM: 01/09/2022 CLINICAL HISTORY: Right-sided lithotripsy TECHNIQUE: Fluoroscopic-guided right-sided lithotripsy COMPARISON: X-ray performed earlier same day FINDINGS: Fluoroscopic guidance was provided during the procedure. A total of 17 seconds of fluorosc opic time was utilized during the procedure and 2 spot images were acquired. IMPRESSION: As Above.
== END 2022-01-09 11:50 | disposition home or self-care (01) ==
LOC: OR 07:20
PROVIDERS: ATTEND Urology
DX: N20.0 Calculus of kidney (principal)
CPT/HCPCS: 52353; 74018; C2625; C1758; C1769; J2250; J1100; J0690; J2405; J2001; J3010; J0330; J2704; J1170

== ENCOUNTER → 2022-06-20 | Outpatient (CLI) | payer MEDICARE ==
--- NOTE | 2022-06-20 13:06 | CT ---
EXAMINATION TYPE: CT angio chest DATE OF EXAM: 06/20/2022 COMPARISON: 01/24/2019 HISTORY: 72-year-old male I71.2, thoracic aortic aneurysm without rupture, f/u aneurysm TECHNIQUE: Contiguous axial scanning of the chest performed without and with IV Contrast, patient inj ected with 100 mL of Isovue 370. Coronal/sagittal MIP reconstructions performed. 3-D reconstructions generated on a dedicated independent workstation. CT DLP: 1168 mGycm Automated exposure control for dose reduction was used. FINDINGS: Heart normal size without pericardial effusion. Prominent epicardial fat pad. Extensive LAD coronary artery calcifications are present. The aortic root is ectatic at 3.8 cm versus 3.6 cm, previously. Ascending aorta aneurysmal at 4.3 cm versus 4.1 cm, previously. No evidence for aortic dissection. Initial noncontrast CT shows no evidence for acute intraparenchymal hematoma. Conventional arch vessel branching anatomy. Ectatic upper descending thoracic aorta 3.8 cm, unchanged. Tortuous descending thoracic aorta with distal ectasia up to 2.8 cm, unchanged. No thoracic lymphadenopathy by CT size criteria. Mildly enlarged caliber to the right and left pulmonary arteries measuring up to 3.0 cm suggesting un derlying pulmonary hypertension. Lungs show no consolidation or pleural effusion. In the visualized upper abdomen, a posterior right hepatic lobe cysts shows considerable decrease in size now 9.5 x 6.7 cm versus 14.3 x 13.5 cm, previously. Scattered renal cysts are present measuring up to 6.1 cm on the left. Bones: DISH in the lower thoracic spine. No osseous destructive process. IMPRESSION: 1. ANEURYSMAL ASCENDING AORTA 4.3 CM (VERSUS 4.1 CM IN 2019). THE ROOT IT IS ECTATIC MEASURING 3.8 CM (VERSUS 3.6 CM, PREVIOUSLY). 2. SIMILAR ECTASIA OF THE DESCENDING THORACIC AORTA TO 3.8 CM. 3. EXTENSIVE LAD CORONARY ARTERY CALCIFICATIONS. 4. POSSIBLE UNDERLYING PULMONARY HYPERTENSION. 5. PREVIOUS POSTERIOR RIGHT LIVER LOBE CYST SHOWS CONSIDERABLE DECREASE IN SIZE NOW 9.5 X 6.7 CM (LARRY LAMBERTO 14.3 CM, PREVIOUSLY).
== END | disposition home or self-care (01) ==
LOC: RADCTMAIN 10:01
PROVIDERS: ATTEND Family Medicine
DX: I77.810 Thoracic aortic ectasia (principal); K76.89 Other specified diseases of liver
CPT/HCPCS: 82565; 84520; 71275; 36415; Q9967

== ENCOUNTER → 2023-03-09 | Outpatient (CLI) | payer MEDICARE ==
--- NOTE | 2023-03-09 15:33 | US ---
EXAMINATION TYPE: US thyroid st tissue head/neck DATE OF EXAM: 03/09/2023 COMPARISON: Cta Chest 06/20/22 CLINICAL INDICATION: Male, 73 years old with history of R22.1 SWELLING MASS, LUMP, NECK; Lump within the left submandibular area x a couple months. Scanned left submandibular at area of patient's palpable lump. Hypoechoic, probable lymph node seen measurin.2 x 1.5 x 0.7 cm. Cortex measures 3.6 mm. May be t hickened Right neck and midline neck were scanned. Hypoechoic area with hyperechoic center, probably lymph node seen within the right submandibular area : 1.7 x 1.5 x 1.0 cm. Cortex measures 3.6 mm. Which may be thickened IMPRESSION: 1. Prominent lymph nodes with thickened cortex bilaterally at the patient's palpable regions. 2. If additional workup would be of benefit, consider CT soft tissue neck with contrast.
== END | disposition home or self-care (01) ==
LOC: RADUSWWP 15:01
PROVIDERS: ATTEND Family Medicine
DX: R22.1 Localized swelling, mass and lump, neck (principal)
CPT/HCPCS: 76536

== ENCOUNTER → 2023-04-02 | Outpatient (CLI) | payer MEDICARE ==
[2023-04-02 14:34] LABS: African American GFR (CKD) 82 (>60 ml/min/1.73 sqM); Blood Urea Nitrogen 15 mg/dL (9-20); Non-African American GFR(CKD) 71 (>60 ml/min/1.73 sqM)
--- NOTE | 2023-04-02 15:53 | CT ---
EXAMINATION TYPE: CT soft tissue neck w con CT DLP: 793.90 mGycm, Automated exposure control for dose reduction was used. DATE OF EXAM: 04/02/2023 3:00 PM COMPARISON: 08/20/2015. CLINICAL INDICATION:Male, 73 years old with history of R59.0; PHH, swollen lymph nodes. att: left jonnie e. TECHNIQUE: Standard enhanced CT of the neck. Axial sections with coronal and sagittal reformats were obtained. Contrast used:100 mL of Isovue 300 with IV Contrast, Oral contrast used: none. FINDINGS: Brain: Visualized portions are grossly unremarkable. Orbits: Unremarkable Sinuses: Grossly unremarkable. Spaces of the neck: Clear and symmetric. Musculoskeletal: No acute osseous pathology. Lymph nodes: Multiple nonenlarged lymph nodes are seen along both anterior chains of the neck. Vascular structures: Patent with atherosclerotic plaque of the internal carotid arteries at the bifur cation. Thoracic Inlet/airway: Airway is patent. The lung apices are clear. Soft tissues/Thyroid: Thyroid and remainder of the soft tissues are unremarkable. Other: none. IMPRESSION No suspicious lymph nodes. No lymph nodes are greater than 1.0 cm in short axis.
== END | disposition home or self-care (01) ==
LOC: RADCTMAIN 13:58
PROVIDERS: ATTEND Family Medicine
DX: R59.0 Localized enlarged lymph nodes (principal)
CPT/HCPCS: 82565; 84520; 70491; 36415; Q9967

== ENCOUNTER → 2024-04-07 | Outpatient (CLI) | payer MEDICARE ==
--- NOTE | 2024-04-08 20:59 | MR ---
EXAMINATION TYPE: MR Prostate wo/w con DATE OF EXAM: 04/07/2024 8:30 AM COMPARISON: None. CLINICAL INDICATION:Male, 74 years old with history of C61 MALIGNANT NEOPLASM OF PROSTATE; Prostate C a, Elevated PSA TECHNIQUE: Multi-planar, multi-sequence imaging of the pelvis is performed prior to and following the uncomplicated administration of bolus intravenous gadolinium. CONTRAST: 10.5 Gadavist Interpretive Criteria: PI-RADS v2.1 SERUM PSA: =5.20, =4.82 SURGICAL PATHOLOGY: No data available. FINDINGS: Prostatic dimensions: 5.1 x 6.1 x 3.7 cm. Ellipsoid Volume:60.27 (PSA density=0.08 ng/mL/mL) CENTRAL GLAND (Central and Transition Zones/CZ+TZ): Multiple bilateral, heterogenous appearing hypertrophic stromal nodules, without suspicious lesion. M edian lobe hypertrophy with protrusion into the base of the bladder. (PI-RADS 2) PERIPHERAL ZONE (PZ): Bilateral linear, indistinct wedgelike areas of low ADC, and low T2 signal, No evidence of masslike a bnormality, or localized perfusional hypervascularity, to further suggest a focus of clinically signi ficant prostate cancer. (PI-RADS 2) SEMINAL VESICLES (SV): Symmetric and unremarkable. PERIPROSTATIC TISSUES: Unremarkable. LYMPH NODES: No enlarged pelvic lymph node. REMAINING PELVIS: Bladder wall is within normal limits given distention. No abnormal free or organized intrapelvic fluid collection. No pathologic bowel dilation or mural thickening. Bilateral fat containing inguinal hernias. OSSEOUS STRUCTURES: No suspicious osseous abnormality. IMPRESSION: 1. No specific features for high-risk prostate cancer. Maximum PI-RADS score: 2. 2. Moderate BPH, estimated gland volume 60.27 mL. 3. No suspicious osseous lesion. No lymphadenopathy. No evidence of prostate adenocarcinoma involving the periprostatic tissues.
== END | disposition home or self-care (01) ==
LOC: RADMRIMAIN 07:03
PROVIDERS: ATTEND Urology
DX: C61 Malignant neoplasm of prostate (principal); N40.0 Benign prostatic hyperplasia without lower urinary tract symptoms
CPT/HCPCS: 72197

== ENCOUNTER 2024-04-18 10:52 | Day surgery (SDC) | payer MEDICARE ==
[2024-04-16 14:23] VITALS: BMI 35.4
[~2024-04-18 10:52] MED LIST changes: -DEXAMETHASONE SOD PHOSPHATE 4 MG/ML 1 ML VIAL IV ONE; -HYDROmorphone 0.5 MG/0.5 ML SYRINGE IVP PRN; -LACTATED RINGERS 1,000 ML IV SCH; +LIDOCAINE 1% (10MG/ML) FOR IV START INTRADERMA PRN; -ONDANSETRON 4 MG/2 ML VIAL IVP ONE
[2024-04-18] MEDS: LACTATED RINGERS 1,000 ML IV SCH (11:35)
[2024-04-18 11:37] VITALS: RESP 16; TEMP 97.6
[2024-04-18] MEDS ORDERED: PROPOFOL 10 MG/ML 20 ML VIAL IV ONE (12:13)
--- NOTE | 2024-04-18 12:48 | P.PCN ---
Date of Procedure: 04/18/24 Procedure(s) Performed: BRIEF HISTORY: Patient is a 74-year-old pleasant white male scheduled for an elective colonoscopy as a part of evaluation for history of colon polyps. His last colonoscopy was 5 years ago. PROCEDURE PERFORMED: Colonoscopy with snare polypectomy. PREOPERATIVE DIAGNOSIS: History of colon polyps. IV sedation per Anesthesia. PROCEDURE: After informed consent was obtained, the patient, was brought into the endoscopy unit. IV sedation was administered by Anesthesia under continuous monitoring. Digital rectal examination was normal. Initially the Olympus CF-160 flexible video colonoscope was then inserted in the rectum, gradually advanced into the right colon with moderate to severe difficulty despite multiple attempts I could not advance the scope into the base of the cecum. Part of the ileocecal valve was visualized and appeared normal. . Careful examination was performed as the scope was gradually being withdrawn. Prep was fair.. Mucosa of the cecum, the normal-appearing descending colon there was a 5 mm sessile polyp removed by cold snare polypectomy. Rest of the ascending colon, transverse colon, descending colon, appeared normal. In the sigmoid colon there was another 5 mm sessile polyp removed by cold snare polypectomy. Scattered left- sided diverticulosis seen. Sigmoid colon, and rectum appeared normal. Retroflexion was performed in the rectum and grade 2 internal hemorrhoids were seen. The patient tolerated the procedure well. IMPRESSION: 5 mm ascending colon polyp status post cold snare polypectomy 5 mm sigmoid colon polyp status post polypectomy scattered sigmoid diverticulosis Grade 2 internal hemorrhoids RECOMMENDATIONS: Findings of this examination were discussed with the patient as well as his family. He was advised to follow-up with the biopsy results and have repeat colonoscopy in 5 years..
[2024-04-18 13:09] VITALS: BP 136/84; PULSE 74
== END 2024-04-18 13:35 | disposition home or self-care (01) ==
LOC: ORWHC2ENDO 10:52
PROVIDERS: ATTEND Internal Medicine Gastroenterology
DX: D12.2 Benign neoplasm of ascending colon (principal); K64.1 Second degree hemorrhoids; I10 Essential (primary) hypertension; I25.10 Atherosclerotic heart disease of native coronary artery without angina pectoris; I47.10 Supraventricular tachycardia, unspecified; G35 Multiple sclerosis; G47.33 Obstructive sleep apnea (adult) (pediatric); N14.2 Nephropathy induced by unspecified drug, medicament or biological substance; J30.1 Allergic rhinitis due to pollen; F10.99 Alcohol use, unspecified with unspecified alcohol-induced disorder; I35.0 Nonrheumatic aortic (valve) stenosis; I71.9 Aortic aneurysm of unspecified site, without rupture; Z79.899 Other long term (current) drug therapy
CPT/HCPCS: 88305; 45385; J2704